=== PATIENT | male | born 1980 | race Asian ===

== ENCOUNTER 2024-11-09 14:02 | Emergency (ER) | payer MEDICAID ==
[~2024-11-09] VITALS: Ht 180.3 cm; Wt 79.5 kg
[~2024-11-09 14:02] MED LIST: ALLO-97 PO; AMLO-257 PO; COLC-3 PO; PRED-554 PO; SIMV-43 PO
[2024-11-09 14:14] VITALS: BP 136/79; PULSE 104; RESP 18; TEMP 98.8; O2SAT 98
== END 2024-11-09 19:46 | disposition home or self-care (01) ==
LOC: EMS 14:02
DX: R10.32 Left lower quadrant pain (principal); I10 Essential (primary) hypertension; Z87.19 Personal history of other diseases of the digestive system; Z79.899 Other long term (current) drug therapy
CPT/HCPCS: 99281; Z7502

== ENCOUNTER 2024-11-10 07:34 | Emergency (ER) | payer MEDICAID ==
[~2024-11-10] VITALS: Ht 172.7 cm; Wt 81.8 kg
[~2024-11-10 07:34] MED LIST changes: -PRED-554 PO
[2024-11-10 09:57] VITALS: TEMP 98
[2024-11-10] MEDS ORDERED: IOHEXOL 300 MG/ML 10 ML VIAL ONE (10:43)
[2024-11-10] MEDS ORDERED: IOHEXOL 300 MG/ML 50 ML VIAL ONE (10:43)
[2024-11-10] MEDS ORDERED: LIDOCAINE/PF 1% 30 ML VIAL ONE (11:00)
[2024-11-10 13:10] VITALS: BP 124/81; PULSE 82; RESP 16; O2SAT 96
== END 2024-11-10 13:11 | disposition home or self-care (01) ==
LOC: EMS 07:37
DX: K57.20 Diverticulitis of large intestine with perforation and abscess without bleeding (principal); I10 Essential (primary) hypertension; Z79.899 Other long term (current) drug therapy
CPT/HCPCS: 99281; J3490; Q9967

== ENCOUNTER 2024-11-24 08:53 | Emergency (ER) | payer MEDICAID ==
[~2024-11-24] VITALS: Ht 172.7 cm; Wt 90.0 kg
[2024-11-24 09:00] VITALS: TEMP 98
[2024-11-24] MEDS ORDERED: IOHEXOL 300 MG/ML 10 ML VIAL ONE (11:34)
[2024-11-24] MEDS ORDERED: SODIUM BICARBONATE 50 MEQ/50 ML VIAL ONE (11:43)
[2024-11-24] MEDS: IOHEXOL 300 MG/ML 10 ML VIAL IARTER ONE (11:57)
[2024-11-24] MEDS: LIDOCAINE 1% 30 ML/SOD BICARB 8.4% 4 ML SQ ONE (11:57)
[2024-11-24 12:08] VITALS: BP 125/81; PULSE 75; RESP 16; O2SAT 98
== END 2024-11-24 12:21 | disposition home or self-care (01) ==
LOC: EMS 08:57
DX: K57.20 Diverticulitis of large intestine with perforation and abscess without bleeding (principal); K63.2 Fistula of intestine; I10 Essential (primary) hypertension; Z79.899 Other long term (current) drug therapy
CPT/HCPCS: 99284; 76000 ×2; 49424; J3490; Q9967